=== PATIENT | female | born 1980 | race American Indian/Alaskan Native ===

== ENCOUNTER 2018-12-25 09:30 | Emergency (ER) | payer SELFPAY ==
[2018-12-25 09:38] VITALS: BP 145/91
[2018-12-25] MEDS ORDERED: CLEOCIN PO ONE (09:59)
[2018-12-25] MEDS ORDERED: IBUPROFEN PO ONE (09:59)
--- NOTE | 2018-12-25 10:00 | Emergency Department Report ---
ED ENT HPI - General Chief complaint: Dental/Oral Stated complaint: TOOTH PAIN/FACE SWOLLEN Time Seen by Provider: 12/25/18 09:54 Source: patient Mode of arrival: Ambulatory Limitations: No Limitations - History of Present Illness Initial comments: 38-year-old female presents complaining of dental pain that started yesterday. Patient states she was eating when she accidentally slipped one of her causing her pain and swelling to the right frontal aspect of her mouth. Patient states that she has a dentist appointment tomorrow. Denies any fever, chills nausea vomiting or any trouble swallowing. MD complaint: tooth pain Location: tooth # (7) Severity: moderate Severity scale (0 -10): 7 Quality: aching, constant Context- Dental: history of dental caries, poor dental care Associated Symptoms: gum swelling. denies: fever, cough, pain with swallowing, sore throat - Related Data Previous Rx's Medication Instructions Recorded Last Taken Type Clindamycin [Clindamycin CAP] 300 mg PO TID #21 capsule 12/25/18 Unknown Rx Ibuprofen [Motrin 800 MG tab] 800 mg PO TID #20 tablet 12/25/18 Unknown Rx Allergies Allergy/AdvReac Type Severity Reaction Status Date / Time No Known Allergies Allergy Unverified 12/25/18 09:37 ED Dental HPI - General Chief complaint: Dental/Oral Stated complaint: TOOTH PAIN/FACE SWOLLEN Time Seen by Provider: 12/25/18 09:54 Source: patient Mode of arrival: Ambulatory Limitations: No Limitations - Related Data Previous Rx's Medication Instructions Recorded Last Taken Type Clindamycin [Clindamycin CAP] 300 mg PO TID #21 capsule 12/25/18 Unknown Rx Ibuprofen [Motrin 800 MG tab] 800 mg PO TID #20 tablet 12/25/18 Unknown Rx Allergies Allergy/AdvReac Type Severity Reaction Status Date / Time No Known Allergies Allergy Unverified 12/25/18 09:37 ED Review of Systems ROS: Stated complaint: TOOTH PAIN/FACE SWOLLEN Other details as noted in HPI Comment: All other systems reviewed and negative ED Past Medical Hx - Past Medical History Previous Medical History?: No - Surgical History Past Surgical History?: No - Social History Smoking Status: Never Smoker Substance Use Type: None - Medications Home Medications: Home Medications Medication Instructions Recorded Confirmed Last Taken Type Clindamycin [Clindamycin CAP] 300 mg PO TID #21 capsule 12/25/18 Unknown Rx Ibuprofen [Motrin 800 MG tab] 800 mg PO TID #20 tablet 12/25/18 Unknown Rx ED Physical Exam - General Limitations: No Limitations - Head Head exam: Present: atraumatic - Eye Eye exam: Present: normal appearance Pupils: Present: normal accommodation - ENT ENT exam: Present: mucous membranes moist - Expanded ENT Exam Expanded Mouth exam: Present: normal external inspection Teeth exam: Present: dental caries, fractured tooth # (7), gingival enlargement (around dental 7 and 8) Throat exam: Positive: normal inspection. Negative: tonsillar erythema, tonsillomegaly, tonsillar exudate - Neck Neck exam: Present: normal inspection, full ROM. Absent: tenderness, l ymphadenopathy ED Course Vital Signs 12/25/18 09:37 Temperature 98.2 F Pulse Rate 105 H Respiratory 15 Rate Blood Pressure 145/91 [Left] O2 Sat by Pulse 100 Oximetry ED Medical Decision Making - Medical Decision Making 38 year-old female who presents with right-sided Facial pain secondary to odontogenic caries ED course: Patient received clindamycin and Motrin and ED Odontogenic infection versus ear infection. Based upon history and physical examination, pain is a result of an infection of tooth number 7 and that the pain Pt feels on the right side frontal of her face and towards the ear is referred pain from this infectious process. Pt has no evidence of acute impending airway compromise. At this point, patient will be discharged home on some antibiotics and pain trial, she will do well with an outpatient course of antibiotics. Follow up with the Dental Clinic tomorrow. I discussed the patient keep her appointment with the dentist tomorrow Vital signs are normal patient is in no acute distress. Pt had an effect uneventful ED stay Critical care attestation.: If time is entered above; I have spent that time in minutes in the direct care of this critically ill patient, excluding procedure time. ED Disposition Clinical Impression: Pain, dental Disposition: [id number] TO HOME OR SELFCARE Is pt being admited?: No Does the pt Need Aspirin: No Condition: Stable Instructions: Toothache (ED), Dental Caries (ED) Additional Instructions: Make sure to follow up with the dentist as discussed. Take all your medications as you've been prescribed. If you have any worsening symptoms or develop new symptoms please return to ED immediately. Prescriptions: Clindamycin [Clindamycin CAP] 300 mg PO TID #21 capsule Ibuprofen [Motrin 800 MG tab] 800 mg PO TID #20 tablet Referrals: [facility] [Outside] - 3-5 Days [facility] [Outside] - 3-5 Days Forms: Work/School Release Form(ED) Time of Disposition: 10:13
== END 2018-12-25 10:23 | disposition home or self-care (01) ==
LOC: ED 09:30
DX: K08.89 Other specified disorders of teeth and supporting structures (principal)

== ENCOUNTER 2020-12-01 19:47 | Emergency (ER) | payer SELFPAY | END 2020-12-01 21:50 | disposition left against medical advice (07) | LOC: ED 19:47 | DX: N89.8 Other specified noninflammatory disorders of vagina (principal); Z53.21 Procedure and treatment not carried out due to patient leaving prior to being seen by health care provider ==

== ENCOUNTER 2021-10-07 17:41 | Emergency (ER) | payer SELFPAY ==
[2021-10-07 18:36] VITALS: BP 154/93
--- NOTE | 2021-10-08 10:14 | Electrocardiograph Report ---
[facility] Test Date: 2021-10-07 Test Time: 18:40:06 Pat Name: VELVET LIMA Department: Room: Gender: F Field Mechanic: AF : 1980 Requested By: FELIZ LEDEZMA Order Number: [id number] Reading MD: William Grubbs Measurements Intervals [place] Rate: 105 P: 36 MA: 184 QRS: 41 QRSD: 80 T: 40 QT: 324 QTc: 428 Interpretive Statements Sinus tachycardia Probable left atrial enlargement No previous ECG available for comparison Electronically Signed On 10-08-2021 10:14:17 EDT by William Grubbs
== END 2021-10-07 22:41 | disposition left against medical advice (07) ==
LOC: ED 17:41
DX: R07.89 Other chest pain (principal); Z53.21 Procedure and treatment not carried out due to patient leaving prior to being seen by health care provider
CPT/HCPCS: 93005